=== PATIENT | male | born 1975 | race Caucasian/White ===

== ENCOUNTER 2016-08-23 20:25 | Inpatient (IN) | payer OTHER ==
[~2016-08-23] VITALS: Ht 170.2 cm; Wt 80.8 kg
--- NOTE | 2016-08-23 20:29 | NUR ---
RECEIVED A 40 Y/O M BIB [facility] FROM [facility]. PER PARAMEDICS, PT COMPLAINED OF CP AT [facility] AND WAS PLACED ON THE HEART MONITOR AND IT READ HEART RATE 188. THEY CALLED 911. AND WHEN THEY GOT THERE, PT WAS SUSPECTED TO HAVE SVT. THEY STARTED A LINE AND GAVE A BOLUS OF 500 CC NS AND PATIENT CONVERTED TO NSR. PT DENIES ANY NAUSEA AT THIS MOMENT OR CHEST PAIN. [facility] GUARDS AT THE BEDSIDE. PT PLACED IN CM, PULSE OX, BP CUFF AND 4LITERS OF OXYGEN VIA NC SINCE PATIENT WAS SATURATING AT 93%IN RA. MSE DONE BY DR SILVA. IV ON THE LEFT AC 18 G PATENT AND INTACT. WILL CONTINUE TO MONITOR FOR SAFETY
[2016-08-23 20:51] LABS: BASOPHIL % 0.4 % (0-2); PLATELET COUNT 264 x10^3mcL (130-400); RED CELL DISTRIBUTION WIDTH 13.6 % (11.5-14.5)
[2016-08-23 20:54] LABS: CALCIUM 8.4 mg/dL (8.5-10.1); CARBON DIOXIDE 31.7 mmol/L (21-32); CHLORIDE SERUM 102 mmol/L (98-107); CREATININE SERUM 0.9 mg/dL (0.7-1.3); GFR1 > 60 mL/min; GLUCOSE SERUM 74 mg/dL (74-106); POTASSIUM SERUM 3.4 mmol/L (3.5-5.1); SODIUM SERUM 139 mmol/L (136-145)
[2016-08-23 21:06] LABS: ALBUMIN 3.6 g/dL (3.4-5.0); ALKALINE PHOSPHATASE 80 U/L (46-116); ALT/SGPT 28 U/L (16-63); AST/SGOT 23 U/L (15-37); T4(THYROXINE) 5.1 ug/dL (4.7-13.3)
[2016-08-23 21:18] LABS: AMPHETAMINE QUAL UR NONE DETECTED (NEG <=1000)
[2016-08-23] MEDS ORDERED: XOPENEX1.25 MG/3 NEB (21:18)
[2016-08-23] MEDS ORDERED: EFFEXOR-XR75 MG PO (21:18)
[2016-08-23] MEDS ORDERED: GOOD SENSE ASPI81 M3 (21:18)
[2016-08-23] MEDS ORDERED: SIMVASTATIN20 M1 PO (21:18)
--- NOTE | 2016-08-23 22:09 | NUR ---
RECEIVED PT FROM ED [facility], CAME IN DUE TO LEFT SIDED CHEST PAIN. AAOX4. NO SOB NOTED, ON 2LPM/NC, O2 SAT=94%. DENIES CHEST PAIN/PRESSURE AT THIS TIME, SINUS TACHYCARDIA ON THE MONITOR. DENIES ABDOMINAL DISCOMFORT. IV SITE PATENT AND INTACT. SIDE RAILS UPX2. CALL LIGHT ON REACH. PRIMARY NURSE SUPIN AT BEDSIDE FOR CONTINUITY OF CARE
--- NOTE | 2016-08-23 22:13 | NUR ---
PT TRANSPORTED TO [facility] VIA [facility] ON CM BY JADIEL ROD AND RYAN HURTADO. PT IN NAD
[2016-08-23 22:21] VITALS: BP 121/87
[2016-08-23 22:26] VITALS: Ht 170.2 cm; Wt 80.8 kg
--- NOTE | 2016-08-23 22:46 | NUR ---
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
--- NOTE | 2016-08-23 22:46 | NUR ---
SEEN PATIENT AAOX4. DENIES CHEST PAIN AT THIS TIME. SINUSTACHYCARDIA AT 101. SCD TO BLE MAINTAINED. CALLED DOCTOR ALEXEI FOR NEW ADMIT ORDERS STS WILL CALL BACK.
--- NOTE | 2016-08-23 23:10 | NUR ---
NOTED NEW ORDERS, WILL BE CARRIED OUT.
[2016-08-23 23:24] LABS: AMYLASE 60 U/L (25-115); CHOLESTEROL 161 mg/dL (<200); CHOLESTEROL/HDL RATIO 3.9; HDL CHOLESTEROL 41 mg/dL (40-60); LIPASE 136 IU/L (73-393); TRIGLYCERIDES 407 mg/dL (<150)
[2016-08-23 23:25] LABS: UA SPECIFIC GRAVITY <=1.005 (1.005-1.035); microscopic required? YES; urine erythrocyte TRACE (NEGATIVE)
--- NOTE | 2016-08-24 05:19 | NUR ---
NO ACUTE DISTRESS THROUGHOUT THE SHIFT. VSS. NSR ON TELE MONITOR. DENIES CHEST PAIN.
[2016-08-24 05:32] VITALS: BP 119/76
--- NOTE | 2016-08-24 08:00 | NUR ---
PT AWAKE ALERT AND ORIENTED X4 ABLE TO MAKE NEEDS KNOWN, NO SIGNS OF DISTRESS. NO C/O CP OR SOB AT THIS TIME. TELE 3 SR. PULSES EQUAL BILATERAL NO EDEMA NOTED. LUNGS CTA, ON RA. BOWLE TONES ACTIVE IN ALL QUADRANTS. BRP, URINIAL AT BEDISDE. NO C/O PAIN. IV TO THE LAC PATENT AND INFUSING. PT IS CALM AND COOPERATIVE WITH CARE.
[2016-08-24 10:03] VITALS: BP 134/91
--- NOTE | 2016-08-24 12:04 | NUR ---
NO HEPARIN BOLUS GIVEN TO PT, PT RECIEVED 5000U SQ THIS MORNING.
--- NOTE | 2016-08-24 12:10 | NUR ---
SPOKE TO DR SEBASTIAN ORDERED MORNING LABS AND FOR PT TO BE ON HEPARIN DRIP ORDERED CONFIRMED AND READ BACK TO
--- NOTE | 2016-08-24 14:00 | NUR ---
PT RESTING COMFORABLY IN BED NO SIGNS OF DISTRESS CALL LIGHT IN REACH WILL CONTINUE TO MONITOR.
--- NOTE | 2016-08-24 14:00 | NUR ---
HEPARIN DRIP INIATED RUNNING AT 1000, VERIFIED BY ANOTHER RN. PTT ORDERED. WILL CONTINUE TO MONITOR PT.
[2016-08-24 14:26] VITALS: BP 136/83
[2016-08-24 16:43] VITALS: BP 131/93
--- NOTE | 2016-08-24 17:06 | NUR ---
PT RESTING IN BED DENIES CP AT THIS TIME. CALL LIGHT IN REACH WILL CONTINUE TO MONITOR.
--- NOTE | 2016-08-24 18:17 | NUR ---
PT RESTING IN BED NO SIGNS OF DISTRESS CALL LIGHT IN REACH, NO C/O CP OR SOB AT THIS TIME. CALL LIGHT IN REACH WILL CONTINUE TO MONITOR.
--- NOTE | 2016-08-24 19:20 | NUR ---
SEEN IN BED AAOX4. NO RESP DISTRESS NOTED. NSR ON TELE MONITOR. DENIES CHEST PAIN. ON HEPARIN DRIP AT 1000 UNIT/HR PER PROTOCAL. MADE AWARE OF [facility] PROCEDURE TOMORROW. PLAN OF CARE DISCUSSED. IV ACCESS TO LAC INTACT AND PATENT. CALL LIGHT PLACED WITHIN EASY REACH. SIDERAILS UP X2.
[2016-08-24 20:47] VITALS: BP 135/92
--- NOTE | 2016-08-24 21:42 | NUR ---
PTT LEVEL=44.8, REBOLUS 3200 UNITS AND INCREASED TO 1200 UNIT/HR PER PROTOCAL.
[2016-08-25] VITALS (7 sets, daily range): BP systolic 115–130; BP diastolic 75–87
--- NOTE | 2016-08-25 02:29 | NUR ---
PTT 91.6, HOLD HEPARIN DRIP FOR 1 HR, THEN WILL REDUCE RATE TO 900 UNIT/HR.
--- NOTE | 2016-08-25 06:14 | NUR ---
SLEPT WELL THROUGHOUT THE SHIFT. VSS. DENIES CHEST PAIN. WILL HAVE LIGHT BREAKFAST AND NPO AFTER FOR LEXISCAN. HEPARIN DRIP INFUSING AT 1000 UNIT/HR PER PROTOCAL.
[2016-08-25 06:22] LABS: BASOPHIL % 0.4 % (0-2); CARBON DIOXIDE 31.8 mmol/L (21-32); CHLORIDE SERUM 104 mmol/L (98-107); CREATININE SERUM 0.8 mg/dL (0.7-1.3); GFR1 > 60 mL/min; GLUCOSE SERUM 86 mg/dL (74-106); PLATELET COUNT 222 x10^3mcL (130-400); SODIUM SERUM 141 mmol/L (136-145)
--- NOTE | 2016-08-25 08:00 | NUR ---
RECEIVED PATIENT ALERT AND ORIENTED TIMES FOUR. PATIENT HAS BEEN SLEEPING WELL AND DENIES PAIN AT THIS TIME. NO COUGH NOTED AND LUNGS ARE CLEAR. PULSES STRONG AND NOTED HISTORY OF A FIB. PATIENT WITH GAURDS AT BEDSIDE AND SECURITY MAINTAINED. IV INTACT AND PATIENT CONTINUED ON HEPARIN ORDERED. LAST PTT AT 49 AND ORDERED ANOTHER IN FOUR HOURS PER PROTOCAL. PATIEN HAS TROPONINE AT 0.119, NAD NO CHEST PAIN AT THIS TIME. PAITENT HAS TRIGLYCERIDES OF 407 AND AT 103. HISTORY OF AFIB, GERD, HLD, HTN, ASTHMA. PATIENTS METROPROLOL WAS HELD AND PAPOT IS FOR HHN TREATMENT PRIOR TO TEST. PATIENT ON DIET OF FULL LIQUID AND TO BE NPO POST BREAKFAST. VITALS AT [facility]IST [facility] AT 97.6, 72, 18, 130/86, 96% ON ROOM AIR.
--- NOTE | 2016-08-25 08:30 | NUR ---
PATIENT AWAKE AND TOLERATED DIET AND FLUIDS WELL AND IS AWARE OF HOLDING HIS BP MEDICADTION WELL NPO STATUS FOR THE TESTING TODAY.
--- NOTE | 2016-08-25 11:20 | NUR ---
PATIENT DENIES PAIN AND IS RESTING QUIETLY AT THIS TIME.
--- NOTE | 2016-08-25 12:35 | NUR ---
MAAME RECEIVED INJECTION FOR LEXISCAN AND PATIENT IS TO RECEIVE BREATHING TREATMENT PRIOR TO TEST. CALLED FOR TREATMENT AND PATIENT TO BE NPO TILL POST THE PROCEDURE.
--- NOTE | 2016-08-25 15:16 | NUR ---
LEXISCAN CARDIOLITE SCAN COMPLETED
--- NOTE | 2016-08-25 17:20 | NUR ---
DR LINDA MADE AWARE OF [facility] RESULTS AT THIS TIME. WILL STANDBY FOR ORDERS.
--- NOTE | 2016-08-25 19:15 | NUR ---
ORDER FOR DISCHARGE RECEIVED AND PATIENT IS GIVEN PAPERWORK TO SIGN AND IV AND TELE REMOVED. PATIENT TOLERATED DIET AND FLUIDS AND GAURDS AT BEDSIDE AND SECURITY MAINTAINED. 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
--- NOTE | 2016-08-25 20:00 | NUR ---
PT RECIEVED AAO REG RESP NO SOB,ON TELE MONITOR AND IN NSR NO ECTOPY OR CHEST PAIN AT THIS TIME,V/S STABLE,KEPT CLEAN AND DRY TO TOUCH,.MADE COMFORTABLE IN BED,WILL CONTINUE TO MONITOR.
--- NOTE | 2016-08-25 22:09 | NUR ---
PT D/C BACK TO [facility] IN W/C AND WAS ACCOMPANIED BY THE NURSE AND THE GUARDS.PT IN STABLE CONDITION AND STABLE AT THE TIME OF D/C.
== END 2016-08-25 22:00 | disposition other institution (70) | DRG 303 ==
LOC: ED 20:25 → DU 21:39
PROVIDERS: Emergency Medicine; ADMIT Internal Medicine
DX: I25.10 Atherosclerotic heart disease of native coronary artery without angina pectoris (principal); I10 Essential (primary) hypertension; E78.5 Hyperlipidemia, unspecified; J45.909 Unspecified asthma, uncomplicated; Z79.82 Long term (current) use of aspirin; Z82.49 Family history of ischemic heart disease and other diseases of the circulatory system; I48.0 Paroxysmal atrial fibrillation; K21.9 Gastro-esophageal reflux disease without esophagitis
CPT/HCPCS: 80307; 83880; A9500; J1644; J2270; J2405; J2785; Q0092